=== PATIENT | female | born 1975 ===

== ENCOUNTER → 2021-12-07 | Outpatient (CLI) | payer OTHER ==
[2021-12-09 03:08] LABS: CHLAMYDIA TRACHOMATIS, NAA Negative (Negative)
== END | disposition home or self-care (01) ==
LOC: LAB SHORT 13:14
PROVIDERS: Hospitalist
DX: Z11.3 Encounter for screening for infections with a predominantly sexual mode of transmission (principal)
CPT/HCPCS: 87491; 87591

== ENCOUNTER → 2024-12-17 | Outpatient (CLI) | payer OTHER ==
[2024-12-19 10:37] LABS: HEPATITIS B SURFACE ANTIBODY <3.10 IU/L
[2024-12-19 14:42] LABS: HEPATITIS B SURFACE ANTIGEN Negative (Negative)
[2024-12-20 09:49] LABS: HIV 1,2 COMBO ANTIGEN/ANTIBODY Negative (Negative)
== END | disposition home or self-care (01) ==
LOC: LAB SHORT 15:09 → LAB 15:09
PROVIDERS: Physician Assistant
DX: Z20.9 Contact with and (suspected) exposure to unspecified communicable disease (principal)
CPT/HCPCS: 84460; 87340

== ENCOUNTER → 2025-01-28 | Outpatient (CLI) | payer OTHER ==
[2025-01-29 16:37] LABS: HIV 1,2 COMBO ANTIGEN/ANTIBODY Negative (Negative)
[2025-01-30 16:08] LABS: HCV QNT BY NAAT (IU/ML) Not Detected; HCV QNT BY NAAT (LOG IU/ML) Not Detected; HCV QNT BY NAAT INTERP Not Detected (Not Detected)
== END ==
LOC: LAB 09:51 → LAB SHORT 09:51
PROVIDERS: Chiropractor
DX: Z20.9 Contact with and (suspected) exposure to unspecified communicable disease (principal)
CPT/HCPCS: 87389; 87522